=== PATIENT | female | born 1955 | race Caucasian/White ===

== ENCOUNTER → 2018-04-22 | Outpatient (CLI) | payer OTHER ==
--- NOTE | 2018-04-22 10:10 | Diagnostic Imaging Report ---
EXAMINATION: Magnetic resonance imaging of the right shoulder without contrast. DATE: April 22, 2018. COMPARISON: None. HISTORY: 63-year-old female, right shoulder pain. Injury starting lawnmower. TECHNIQUE: Magnetic Resonance Imaging sequences were performed of the shoulder without contrast. FINDINGS: ROTATOR CUFF, LIGAMENTS, TENDONS, AND MUSCLES: There is focal tendinopathy of supraspinatus. The infraspinatus, teres minor, and subscapularis tendons are intact. There is normal rotator cuff muscle bulk. There is edema in the anterior deltoid muscle with adjacent prominent subcutaneous edema and abnormal soft tissue edema also extending near the coracoclavicular and coracoacromial ligaments and also more medially located. LONG HEAD OF BICEPS: The biceps labral attachment and long head of the biceps tendon is intact. The long head of the biceps tendon is normally positioned within the bicipital groove. GLENOHUMERAL JOINT: The humeral head is well positioned relative to the glenoid. The labrum is grossly intact. There is no identified paralabral cyst. The articular cartilage is grossly intact. There is no joint effusion. ACROMIOCLAVICULAR JOINT: The acromioclavicular joint is normally aligned. The coracoclavicular and coracoacromial ligaments are intact. There are no prominent acromioclavicular degenerative changes. BONE: The bones all have normal configuration. The bone marrow signal is within normal limits. Specifically, negative for fracture, osteomyelitis, osteonecrosis, or marrow replacing process. BURSAE AND SOFT TISSUES: There is no large volume fluid within the subacromial subdeltoid bursa. IMPRESSION: 1. Edema within the anterior aspect of the deltoid muscle likely reflecting muscle strain or contusion. There is extensive adjacent subcutaneous edema as well as soft tissue edema extending near the coracoclavicular and coracoacromial ligaments and also more medially. The coracoclavicular and coracoacromial ligaments themselves appear intact and there is no abnormal alignment of the acromioclavicular joint. 2. Focal tendinopathy of supraspinatus. Negative for rotator cuff tendon tear. 3. No prominent acromioclavicular degenerative changes. 4. Unremarkable appearance of the glenohumeral joint. 5. No acute fracture, bone contusion, or evidence of osteonecrosis. Dictated by: Dictated on workstation # [id number]
== END ==
LOC: RAD 07:58
PROVIDERS: ATTEND Nurse Practitioner Family
DX: M67.813 Other specified disorders of tendon, right shoulder (principal); R60.0 Localized edema
CPT/HCPCS: 73221

== ENCOUNTER 2022-07-17 10:48 | Emergency (ER) | payer MEDICARE, OTHER ==
[~2022-07-17] VITALS: Ht 165.1 cm; Wt 61.2 kg
[2022-07-17] MEDS ORDERED: morphine INJ 10 MG/ML 1ML (SYR OR VIAL) IVP STA (11:06)
[2022-07-17 11:08] LABS: BASOPHILS % (AUTO) 0 % (0-10); EOSINOPHILS # (AUTO) 0.1 10^3/uL (0.0-0.3); EOSINOPHILS % (AUTO) 2 % (0-10); HEMATOCRIT 40 % (35-52); HEMOGLOBIN 13.5 g/dL (11.5-16.0); LYMPHOCYTES % (AUTO) 43 % (12-44); MEAN CORPUSCULAR HEMOGLOBIN 31 pg (25-34); MEAN CORPUSCULAR HGB CONC 34 g/dL (32-36); MEAN CORPUSCULAR VOLUME 92 fL (80-99); MEAN PLATELET VOLUME 9.7 fL (9.0-12.2); MONOCYTES # (AUTO) 0.5 10^3/uL (0.0-1.0); MONOCYTES % (AUTO) 7 % (0-12); NEUTROPHILS # (AUTO) 3.3 10^3/uL (1.8-7.8); NEUTROPHILS % (AUTO) 47 % (42-75); PLATELET COUNT 306 10^3/uL (130-400)
--- NOTE | 2022-07-17 11:11 | ED Chest Pain ---
General Chief Complaint: Chest Pain Stated Complaint: CP Source: patient Exam Limitations: no limitations History of Present Illness Date Seen by Provider: Jul 17, 2022 Time Seen by Provider: 10:57 Initial Comments This is a well-appearing 67-year-old female who presented to the ER via POV with complaints of sudden onset midsternal chest pain that occurred about 15 minutes prior to arrival. States that she was sitting in her car when her symptoms started, she attempted to lean forward to alleviate the pain but her symptoms persisted. States that she has never had this pain before. Denies any significant cardiac history. Does not take any home medications just [id number] vitamins. Describes the pain as pressure/burning in nature and radiates up into her neck. Denies any nausea, diaphoresis with her symptoms. States that her pain has decreased since arriving in ED. Allergies and Home Medications Allergies Coded Allergies: No Known Drug Allergies (Unverified , 07/17/22) Patient Home Medication List Home Medication List Reviewed: Yes Review of Systems Review of Systems Constitutional: No dizziness, No fever EENTM: See HPI Respiratory: No Symptoms Reported Cardiovascular: Chest Pain; Denies Lightheadedness, Denies Palpitations, Denies Syncope Gastrointestinal: Denies Abdominal Pain, Denies Nausea, Denies Vomiting Genitourinary: No Symptoms Reported Musculoskeletal: no symptoms reported Skin: no symptoms reported Psychiatric/Neurological: No Symptoms Reported Endocrine: No Symptoms Reported Hematologic/Lymphatic: No Symptoms Reported Physical Exam Vital Signs Vital Signs - First Documented 07/17/22 10:51 Temp 36.8 Pulse 68 Resp 30 B/P (MAP) 157/79 (105) Pulse Ox 98 O2 Delivery Room Air Capillary Refill : Height, Weight, BMI Height: '" Weight: lbs. oz. kg; BMI Method: General Appearance: No Apparent Distress, WD/WN HEENT: PERRL/EOMI, Normal ENT Inspection, Pharynx Normal, Moist Mucous Membranes Neck: Normal Inspection, Non Tender, Supple Respiratory: Chest Non Tender, Lungs Clear, Normal Breath Sounds, No Accessory Muscle Use, No Respiratory Distress Cardiovascular: Regular Rate, Rhythm, No Edema, No Gallop, No Murmur, Normal Peripheral Pulses Gastrointestinal: Normal Bowel Sounds, Non Tender, Soft Extremity: Normal Capillary Refill, Normal Inspection, Normal Range of Motion, Non Tender Neurologic/Psychiatric: Alert, Oriented x3, No Motor/Sensory Deficits, Normal Mood/Affect, chemical analytical sampler II-XII Norm as Tested Skin: Normal Color, Warm/Dry Progress/Results/Core Measures Results/Orders Lab Results Laboratory Tests Test 07/17/22 11:01 07/17/22 12:52 07/17/22 13:21 Range/Units White Blood Count 7.0 4.3-11.0 10^3/uL Red Blood Count 4.32 3.80-5.11 10^6/uL Hemoglobin 13.5 11.5-16.0 g/dL Hematocrit 40 35-52 % Mean Corpuscular Volume 92 80-99 fL Mean Corpuscular Hemoglobin 31 25-34 pg Mean Corpuscular Hemoglobin Concent 34 32-36 g/dL Red Cell Distribution Width 12.1 10.0-14.5 % Platelet Count 306 130-400 10^3/uL Mean Platelet Volume 9.7 9.0-12.2 fL Immature Granulocyte % (Auto) 0 % Neutrophils (%) (Auto) 47 42-75 % Lymphocytes (%) (Auto) 43 12-44 % Monocytes (%) (Auto) 7 0-12 % Eosinophils (%) (Auto) 2 0-10 % Basophils (%) (Auto) 0 0-10 % Neutrophils # (Auto) 3.3 1.8-7.8 10^3/uL Lymphocytes # (Auto) 3.0 1.0-4.0 10^3/uL Monocytes # (Auto) 0.5 0.0-1.0 10^3/uL Eosinophils # (Auto) 0.1 0.0-0.3 10^3/uL Basophils # (Auto) 0.0 0.0-0.1 10^3/uL Immature Granulocyte # (Auto) 0.0 0.0-0.1 10^3/uL Prothrombin Time 12.6 12.2-14.7 SEC INR Comment 0.9 0.8-1.4 Activated Partial Thromboplast Time 32 24-35 SEC D-Dimer < 0.27 0.00-0.49 UG/ML Sodium Level 141 135-145 MMOL/L Potassium Level 3.9 3.6-5.0 MMOL/L Chloride Level 105 98-107 MMOL/L Carbon Dioxide Level 25 21-32 MMOL/L Anion Gap 11 5-14 MMOL/L Blood Urea Nitrogen 17 7-18 MG/DL Creatinine 1.03 0.60-1.30 MG/DL Estimat Glomerular Filtration Rate 60 BUN/Creatinine Ratio 17 Glucose Level 91 70-105 MG/DL Calcium Level 9.1 8.5-10.1 MG/DL Corrected Calcium 9.1 8.5-10.1 MG/DL Magnesium Level 2.0 1.6-2.4 MG/DL Total Bilirubin 0.5 0.1-1.0 MG/DL Aspartate Amino Transf (AST/SGOT) 21 5-34 U/L Alanine Aminotransferase (ALT/SGPT) 22 0-55 U/L Alkaline Phosphatase 96 40-136 U/L Total Creatine Kinase 78 29-168 U/L Creatine Kinase MB 1.9 <6.6 NG/ML Myoglobin 43.0 10.0-92.0 NG/ML Troponin I < 0.028 < 0.028 <0.028 NG/ML B-Type Natriuretic Peptide 46.9 <100.0 PG/ML Total Protein 7.0 6.4-8.2 GM/DL Albumin 4.0 3.2-4.5 GM/DL Lipase 16 8-78 U/L Urine Color YELLOW Urine Clarity CLEAR Urine pH 7.0 5-9 Urine Specific [place] 1.010 L 1.016-1.022 Urine Protein NEGATIVE NEGATIVE Urine Glucose (UA) NEGATIVE NEGATIVE Urine Ketones NEGATIVE NEGATIVE Urine Nitrite NEGATIVE NEGATIVE Urine Bilirubin NEGATIVE NEGATIVE Urine Urobilinogen 0.2 < = 1.0 MG/DL Urine Leukocyte Esterase NEGATIVE NEGATIVE Urine RBC (Auto) NEGATIVE NEGATIVE Urine RBC NONE /HPF Urine WBC NONE /HPF Urine Crystals NONE /LPF Urine Bacteria NEGATIVE /HPF Urine Casts NONE /LPF Urine Mucus NEGATIVE /LPF Urine Culture Indicated NO My Orders Orders - MONI JOY SENIOR HRIS ANALYST Cbc With Automated Diff (07/17/22 10:52) Magnesium (07/17/22 10:52) Chest 1 View, Ap/Pa Only (07/17/22 10:52) Ekg Tracing (07/17/22 10:52) Comprehensive Metabolic Panel (07/17/22 10:52) Myoglobin Serum (07/17/22 10:52) Protime With Inr (07/17/22 10:52) Partial Thromboplastin Time (07/17/22 10:52) O2 (07/17/22 10:52) Monitor-Rhythm Ecg Trace Only (07/17/22 10:52) Ed Iv/Invasive Line Start (07/17/22 10:52) Creatine Kinase (07/17/22 10:52) Creatine Kinase Mb (07/17/22 10:52) Lipase (07/17/22 10:52) Bnp [place] (07/17/22 10:52) Fibrin Degradation Products (07/17/22 10:52) Troponin I Claudia (07/17/22 10:52) Morphine Injection (Morphine Injection (07/17/22 11:06) Aspirin Chewable Tablet (Baby Aspirin Ch (07/17/22 11:15) Lidocaine 2% Viscous 15 Ml (Xylocaine Vi (07/17/22 12:00) Antacid Suspension (Mylanta Suspension (07/17/22 12:00) Troponin I Claudia (07/17/22 14:00) Ua Culture If Indicated (07/17/22 14:12) Medications Given in ED Current Medications Medications Dose Ordered Sig/Vladimir Route Start Time Stop Time Status Last Admin Dose Admin Al Hydrox/Mg Hydrox/Simethicone 30 ml ONCE ONCE PO 07/17/22 12:00 07/17/22 12:01 DC 07/17/22 13:17 30 ML Aspirin 324 mg ONCE ONCE PO 07/17/22 11:15 07/17/22 11:16 DC 07/17/22 11:11 324 MG Lidocaine HCl 15 ml ONCE ONCE PO 07/17/22 12:00 07/17/22 12:01 DC 07/17/22 13:17 15 ML Vital Signs/I&O 07/17/22 07/17/22 10:51 14:36 Temp 36.8 Pulse 68 65 Resp 30 30 B/P (MAP) 157/79 (105) 111/61 Pulse Ox 98 96 O2 Delivery Room Air Room Air Progress Progress Note : Progress Note Patient examined in no acute distress. Her EKG does not show any acute ST elevation or depression. States her symptoms are improving at this time and are more 'burning" in nature. Orders placed for cardiac work-up. She was given chewable aspirin 324 mg and morphine 2 mg IV push, will reevaluate. Initial troponin negative, D-dimer neg, remaining labs unremarkable. CXR un remarkable. Will repeat troponin at the 3-hour dena to evaluate for any elevation. She was given GI cocktail and reported immediate improvement of symptoms. Repeat troponin negative, no additional symptoms after receiving GI cocktail. Strongly reinforced to present to the emergency department if her symptoms return for further evaluation. She does not have any coronary risk factors (HTN, DM, HLD, smoking, ect). No family history of coronary disease, she feels comfortable with discharge. Discharge plan of care reviewed and she is agreeable with plan. Initial ECG Impression Date: Jul 17, 2022 Initial ECG Impression Time: 10:56 Initial ECG Rate: 64 Initial ECG Rhythm: Normal Sinus Initial ECG Intervals: Normal Initial ECG Impression: Normal Initial ECG Comparisson: No Previous ECG Available Diagnostic Imaging Diagonstic Imaging: Xray Plain Films/CT/US/NM/MRI: chest Comments [facility], [place] NAME: VIPUL PÉREZ [facility] REC#: [id number] PT STATUS: REG ER : 1955 PHYSICIAN: MONI JOY APRN ADMIT DATE: 07/17/22/ER Draft Date of Exam:07/17/22 CHEST 1 VIEW, AP/PA ONLY INDICATION: Chest pain. EXAMINATION: Portable chest, 11:55 a.m. FINDINGS: Heart size and pulmonary vascularity are normal. Lungs are clear. There are no effusions or pneumothoraces. IMPRESSION: No acute abnormalities in the chest. Dictated on workstation # [id number] Dict: 07/17/22 1212 Trans: 07/17/22 1213 [id number] Interpreted by: AZAEL PATEL MD Electronically signed by: Departure Impression Primary Impression: Acid reflux Additional Impression: Non-cardiac chest pain Disposition: 01 HOME, SELF-CARE Condition: Improved Departure-Patient Inst. Decision time for Depature: 14:22 Referrals: NO,LOCAL PHYSICIAN (PCP/Family) Primary Care Physician Patient Instructions: Acid Reflux, Adult and Adolescent ED Add. Discharge Instructions: Plan: 1. You have been given copies of your labs, EKG, and chest x-ray. If your symptoms return, present to your local ER and take your records with with. 2. Avoid spicy, greasy, foods that may aggravate symptoms. 3. Return for any new, concerning, or worsening symptoms. All discharge instructions reviewed with patient and/or family. Voiced understanding. MONI JOY SENIOR HRIS ANALYST Jul 17, 2022 11:11
[2022-07-17] MEDS ORDERED: ASPIRIN 81 MG CHEW (CHILDREN'S ASA) PO ONE (11:15)
[2022-07-17 11:24] LABS: INR 0.9 (0.8-1.4); POTASSIUM 3.9 MMOL/L (3.6-5.0); PROTHROMBIN TIME PATIENT 12.6 SEC (12.2-14.7)
[2022-07-17 11:25] LABS: CALCIUM 9.1 MG/DL (8.5-10.1)
[2022-07-17 11:28] LABS: BILIRUBIN,TOTAL 0.5 MG/DL (0.1-1.0)
[2022-07-17 11:30] LABS: CREATININE SERUM 1.03 MG/DL (0.60-1.30)
[2022-07-17 11:41] LABS: CREATINE KINASE MB 1.9 NG/ML (<6.6)
[2022-07-17] MEDS ORDERED: ANTACID SUSP 30 ML UDC (MYLANTA) PO ONE (12:00)
[2022-07-17] MEDS ORDERED: LIDOCAINE 2% VISCOUS 15 ML UDC PO ONE (12:00)
--- NOTE | 2022-07-17 12:14 | Diagnostic Imaging Report ---
INDICATION: Chest pain. EXAMINATION: Portable chest, 11:55 a.m. FINDINGS: Heart size and pulmonary vascularity are normal. Lungs are clear. There are no effusions or pneumothoraces. IMPRESSION: No acute abnormalities in the chest. Dictated by: Dictated on workstation # [id number]
[2022-07-17 14:18] LABS: BILIRUBIN,URINE NEGATIVE (NEGATIVE); CLARITY,URINE CLEAR; COLOR,URINE YELLOW; GLUCOSE, URINE (UA) NEGATIVE (NEGATIVE); KETONES,URINE NEGATIVE (NEGATIVE); LEUKOCYTE ESTERASE ,URINE NEGATIVE (NEGATIVE); NITRITE,URINE NEGATIVE (NEGATIVE); PROTEIN,URINE NEGATIVE (NEGATIVE)
[2022-07-17 14:32] LABS: BACTERIA,URINE NEGATIVE /HPF
[2022-07-17 14:36] VITALS: BP 111/61
== END 2022-07-17 14:36 | disposition home or self-care (01) ==
LOC: EDUNIT# 10:48 → ER 10:52
DX: K21.9 Gastro-esophageal reflux disease without esophagitis (principal)
CPT/HCPCS: 36415; 71045; 80053; 81000; 82550; 82553; 83690; 83735; 83874; 83880; 84484; 85025; 85379; 85610; 85730; 93005; 93041; 96374